=== PATIENT | male | born 1955 | race Caucasian/White ===

== ENCOUNTER 2022-11-22 07:58 | Outpatient (CLI) | payer MEDICARE, OTHER, SELFPAY ==
--- NOTE | 2022-11-22 08:10 | ECG_ITS ---
Measurements Intervals [place] Rate: 60 P: MA: 0 QRS: -6 QRSD: 121 T: -9 QT: 370 QTc: 371 Interpretive Statements ATRIAL FIBRILLATION MODERATE INTRAVENTRICULAR CONDUCTION DELAY [105+ ms QRS DURATION, 80+ ms Q/S IN V1/V2, NO Q AND 60+ ms R IN I/aVL/V5/V6] NONSPECIFIC ST AND T WAVE ABNORMALITY NO PREVIOUS ECG AVAILABLE FOR COMPARISON Electronically Signed On 11-22-2022 18:06:39 CDT by Mike Rendon M.D.
[2022-11-22 08:55] LABS: Anion Gap 5 mmol/L (8-16); Blood Urea Nitrogen 30 mg/dL (9-20); Carbon Dioxide 30 mmol/L (22-30); Chloride 105 mmol/L (98-107); Estimated Glomerular Filt Rate > 60; Glucose 113 mg/dL (65-110); Potassium 4.3 mmol/L (3.4-5.0); Sodium 140 mmol/L (137-145)
== END 2022-11-22 07:59 | disposition home or self-care (01) ==
LOC: ANHSURGERY 08:05
PROVIDERS: Anesthesiology; PCP Family Medicine; Visit Provider Neurological Surgery
DX: Z01.818 Encounter for other preprocedural examination (principal); I10 Essential (primary) hypertension; M43.06 Spondylolysis, lumbar region; M51.27 Other intervertebral disc displacement, lumbosacral region; I48.91 Unspecified atrial fibrillation; R94.31 Abnormal electrocardiogram [ECG] [EKG]
CPT/HCPCS: 36415; 80048; 86850; 86900; 86901; 93005

== ENCOUNTER 2022-11-28 00:50 | Day surgery (SDC) | payer MEDICARE, OTHER, SELFPAY ==
--- NOTE | 2022-11-20 14:18 | PC.NURSE ---
Report to the Outpatient Waiting Room, entrance under the green pavilion located off [facility], at time __1030 on date _11/28/22 . Planned Procedure Time: _1230 . Time changes happen often and if your time is changed the preop area will call you the afternoon before. - You and your visitor will be asked to self-screen and do not enter if you have any COVID symptoms. - A mask is optional within the hospital at this time. Patients may have clear liquids (water, carbonated beverages, clear teas, apple juice) until 3 hours prior to surgery with a maximum of 20 ounces. - No food from midnight until time of surgery - Infants may have breast milk until 4 hours before surgery, infant formula 6 hours prior to surgery. - Children will be allowed to drink immediately following surgery. If applicable, please bring a bottle or sippy cup to assist with drinking. Juice, water, soda, and popsicles are readily available. For infants on formula, please bring formula the day of surgery. Pacifiers are allowed. Take the following medications with a SIP of water the morning of surgery: ____LEVOTHYROXINE,CARVEDILOL, HYDROCODONE IF NEEDED FOR PAIN DO NOT STOP ANY OF YOUR OTHER PRESCRIPTION MEDICATIONS PRIOR TO SURGERY ?EXCEPT THE FOLLOWING Medications to discontinue per physician __PT STATES HOLD ELIQUIS 2 DAYS PRE OP PER DR RODRIGUEZ. LAST DOSE 11/25/22. ALL VITAMINS/SUPPLEMENTS 3 DAYS PRE OP.LAST DOSE 11/24/22 Please no make-up, nail thai, hairspray, perfume, deodorant, or body powder the day of surgery. No jewelry (including any body piercings) or valuables the day of surgery, leave them at home. Please take a shower or bath the night before, or the morning of, surgery with an antibacterial soap. Wear comfortable, loose fitting clothing. Children are encouraged to wear pajamas. - Jewelry must be removed prior to entering the operating room. Rings and piercings that are not removed may be cut off. - The hospital will not accept responsibility for valuables. - Please leave all valuables, including medications, at home the day of surgery. If you are going home after surgery, a licensed cart driver must drive you home. - NO public transportation without another adult if you receive anesthesia. - We recommend that an adult stay with you for 24 hours following discharge. - We also recommend that you do not drive, make important decision, drink alcoholic beverages, or take any drugs that were not prescribed by your health care provider for at least 24 hours after your discharge time. For Pediatric surgeries, we recommend two adults accompany the child home. Follow any additional instructions given to you from your surgeon. If you or anyone in your household have experienced Covid symptoms in the past week, please notify your surgeon or the nurse liaison at the phone number below for possible testing. Telephone instructions given to __PATIENT and asked if any additional questions and then verbalized understanding. Patient advised to call surgeon office or pre surgery nurse liaison [phone] if any additional questions.
[2022-11-20 14:41] VITALS: BMI 30.6
[2022-11-28] VITALS (8 sets, daily range): BP systolic 108–134; BP diastolic 66–95; PULSE 58–88; RESP 12–18; TEMP 36.1–36.3; O2SAT 97–100
--- NOTE | ~2022-11-28 | XR_ITS ---
EXAMINATION: XR fluoroscopy no charge DATE: 11/28/2022 16:08 INDICATION: L5-S1 far lateral lumbar microdiscectomy TECHNIQUE: 2 fluoroscopic images of the lumbosacral junction were obtained during procedure performed by Dr. Rivera. Radiologist was not present for the imaging or procedure. The amount of fluoroscopy time used during this procedure was 0.1 minutes. COMPARISON: None. FINDINGS: Wire markers from lap sponge projects over the soft tissues posterior to the lumbosacral junction. Th e tip of a metallic probe projects over the region of the L5-S1 facet joint. There is mild disc heigh t loss at L4-L5 and mild grade 1 anterolisthesis of L5 on S1. IMPRESSION: 1. Fluoroscopy utilized during neurosurgical procedure at the lumbosacral junction. See procedure not e for further detail. Reviewed, dictated and finalized at location A. IMPRESSION: 1. Fluoroscopy utilized during neurosurgical procedure at the lumbosacral junct ion. See procedure note for further detail.
[2022-11-28] MEDS: LACTATED RINGERS 1,000 ML 30 ML IV CONT ×2 (10:50→15:58)
--- NOTE | 2022-11-28 12:16 | WPDANESEPPF ---
Anes - Initial Pre Proc Eval Procedure: Operation Date: 11/28/22 12:30 Proposed Procedures p Right L5-S1 Far Lateral Microdiscectomy - Darrell Rivera MD Date/Time: 11/28/22 12:16 Surgeon: Darrell Rivera MD Pre Op Diagnosis: right L5-s1 far lateral herniated nucleus pulposus Patient Data Age: 67 Gender: M Height: 1.91 m Weight: 109.7 kg Last Vital Signs Temp 36.1 C L 11/28/22 11:02 Pulse 67 11/28/22 11:02 Resp 16 11/28/22 11:02 BP 130/95 H 11/28/22 11:02 Pulse Ox 100 11/28/22 11:02 O2 Del Method Room Air 11/28/22 11:02 Allergies Allergy/AdvReac Type Severity Reaction Status Date / Time No Known Allergies Allergy Verified 11/28/22 10:29 Home Medications Medication Instructions Recorded Confirmed Type apixaban 5 mg tablet (Eliquis) 5 mg PO BID 11/20/22 11/20/22 History carvedilol 12.5 mg tablet 12.5 mg PO BID 11/20/22 11/20/22 History chlorthalidone 25 mg tablet 25 mg PO DAILY 11/20/22 11/20/22 History coQ10 (ubiquinol) 100 mg capsule 100 mg PO DAILY 11/20/22 11/20/22 History gabapentin 300 mg capsule 600 mg PO HS 11/20/22 11/20/22 History hydrocodone 5 mg-acetaminophen 325 1 tablet PO Q6-8H PRN Pain 11/20/22 11/20/22 History mg tablet levothyroxine 88 mcg tablet 88 mcg PO DAILY 11/20/22 11/20/22 History lisinopril 20 mg tablet 25 mg PO BID 11/20/22 11/20/22 History multivitamin (Daily Multi-Vitamin 1 tablet PO DAILY 11/20/22 11/20/22 History tablet) pravastatin 40 mg tablet 40 mg PO HS 11/20/22 11/20/22 History prazosin 1 mg capsule 1 mg PO HS PTSD 11/20/22 11/20/22 History Patient hx anesthesia problems: none Family hx anesthesia problems: none Results Review: All pre-operative results and documents have been reviewed as part of the pre-operative evaluation. [facility] Past Medical History Medical History Afib Asthma CAD (coronary artery disease) Hypercholesterolemia Hypertension Inguinal hernia Lumbar stenosis Sleep apnea Surgical History Surgical History (Updated 11/28/22 @ 12:16 by Kevan Marques MD) S/P hernia surgery Stented coronary artery Family History Family History Other Asthma Diabetes mellitus Heart disease Hypertension Social History Social History Smoking status: Never smoker Alcohol intake: never Substance use: never Substance use type: does not use Lack of Transportation: No Lack of Food: Never True Current Housing: I Have Housing Concerned About Future Housing: No Difficulty Paying Gas/Electric Bills: No Difficulty Paying for Meds: No Currently Unemployed: No Education: Decline to Answer Difficulty w/ Childcare or Family Care: No Living arrangements: with family Occupation/Education: occupation Gender identity (if verbalized by the patient): Male Spiritual care concerns: No Anes - Eval Final PreProcedure Day of Procedure 11/28/22 12:16 Patient weight: obese Heart: regular rate and rhythm Lungs: clear to auscultation Airway: Mallampati scale class II and special considerations poor dentition Neurological: alert and oriented Last oral intake: >/= 8 hours ASA classification: III Emergent: no Anesthetic plan: proceed Anesthesia type and monitoring: general ETT and standard monitoring Results Review: All pre-operative results and documents have been reviewed as part of the pre-operative evaluation. Informed Consent: The patient's anesthetic plan and its attendant risks including MT and arrhythmia and benefits were discussed with the patient/family/POA. Questions were solicited and answers provided to the satisfaction of the patient/family/POA.
--- NOTE | 2022-11-28 13:33 | SUR.PREOP ---
Discussed continued delay. Voices understanding. Doesn't seem much bothered by it.
--- NOTE | 2022-11-28 13:56 | PM.IMHP ---
H&P: HPI History of Present Illness Date/Time: 11/28/22 13:56 Chief Complaint: Back and right leg pain Narrative: Donis is a 67-year-old gentleman with back and right lower extremity pain related to a disc herniation in the foramen on the right at L5-S1. He has not changed appreciably since we last saw him. He does not have specific muscle group weakness and occasional dermatomal numbness. He is not having bowel or bladder difficulty. Review of Systems Review of Systems: Patient denies shortness of breath, cough, fever, chills, nausea, vomiting, weight loss, weight gain, chest pain, dysuria. He has back and leg pain as above. His review of systems is otherwise negative on 12 systems except as noted elsewhere. [facility] Past Medical History Medical History Afib Asthma CAD (coronary artery disease) Hypercholesterolemia Hypertension Inguinal hernia Lumbar stenosis Sleep apnea Surgical History Surgical History (Updated 11/28/22 @ 12:16 by Kevan Marques MD) S/P hernia surgery Stented coronary artery Family History Family History Other Asthma Diabetes mellitus Heart disease Hypertension Social History Social History Smoking status: Never smoker Alcohol intake: never Substance use: never Substance use type: does not use Lack of Transportation: No Lack of Food: Never True Current Housing: I Have Housing Concerned About Future Housing: No Difficulty Paying Gas/Electric Bills: No Difficulty Paying for Meds: No Currently Unemployed: No Education: Decline to Answer Difficulty w/ Childcare or Family Care: No Living arrangements: with family Occupation/Education: occupation Gender identity (if verbalized by the patient): Male Spiritual care concerns: No Meds Home Medications and Allergies Home Medications Medication Instructions Recorded Confirmed Type apixaban 5 mg tablet (Eliquis) 5 mg PO BID 11/20/22 11/20/22 History carvedilol 12.5 mg tablet 12.5 mg PO BID 11/20/22 11/20/22 History chlorthalidone 25 mg tablet 25 mg PO DAILY 11/20/22 11/20/22 History coQ10 (ubiquinol) 100 mg capsule 100 mg PO DAILY 11/20/22 11/20/22 History gabapentin 300 mg capsule 600 mg PO HS 11/20/22 11/20/22 History hydrocodone 5 mg-acetaminophen 325 1 tablet PO Q6-8H PRN Pain 11/20/22 11/20/22 History mg tablet levothyroxine 88 mcg tablet 88 mcg PO DAILY 11/20/22 11/20/22 History lisinopril 20 mg tablet 25 mg PO BID 11/20/22 11/20/22 History multivitamin (Daily Multi-Vitamin 1 tablet PO DAILY 11/20/22 11/20/22 History tablet) pravastatin 40 mg tablet 40 mg PO HS 11/20/22 11/20/22 History prazosin 1 mg capsule 1 mg PO HS PTSD 11/20/22 11/20/22 History Allergies Allergy/AdvReac Type Severity Reaction Status Date / Time No Known Allergies Allergy Verified 11/28/22 10:29 Vital Signs Vital Signs - 24 hr 11/28/22 11:02 Temperature 97 F L Pulse Rate 67 Respiratory Rate 16 Blood Pressure 130/95 H Pulse Oximetry 100 Oxygen Delivery Room Air Exam Narrative: Strength is 5/5 in all muscle groups of the bilateral lower extremities. Sensation is intact to light touch throughout the lower extremities. Respirations are nonlabored. He speaks in complete sentences without difficulty. Regular rate and rhythm Assessment and Plan Assessment and plan (1) Lumbosacral disc herniation: Code(s): M51.27 - Other intervertebral disc displacement, lumbosacral region Status: Acute Plan Donis is a 67-year-old gentleman with neural foraminal stenosis on the right at L5-S1 presents for decompression by way of far lateral foraminotomy and microdiskectomy. I described to him again that operation, its risks, potential benefits, the operative and postoperative course in detail and answered all his questions
--- NOTE | 2022-11-28 13:58 | WPDHPUPDATE1 ---
History and Physical Update Update Date/Time: 11/28/22 13:58 History and Physical has been reviewed, including an updated exam of the patient. There are NO changes in the patient's condition. Risks, benefits, and alternatives have been discussed and questions answered. Patient agrees to proceed with procedure.
[2022-11-28] MEDS: ceFAZolin 2 GM/D5W 50 ML 2 GM/50 ML BAG IVPB (14:30)
[2022-11-28] MEDS: LIDO 1%/EPINEPHRINE 1:100,000 50 ML VIAL 10 ML INFILTRATE (15:12)
[2022-11-28] MEDS: fentaNYL CITRATE INJ (*CRX) 100 MCG/2 ML VIAL 25 MCG IV PUSH ×4 (16:19→16:40)
[2022-11-28] MEDS: oxyCODONE HCL (*CRX) 5 MG TAB IR PO (17:09)
--- NOTE | 2022-12-07 08:13 | P.OP_ITS ---
Procedure Note - Detailed Date of Procedure 12/07/22 Pre-op Diagnosis right L5-s1 far lateral herniated nucleus pulposus Post-op Diagnosis Same Procedure Performed Right L4-5 far lateral foraminotomy and microdiskectomy Surgeon Darrell Rivera MD Anesthesia General Description of Procedure The patient was brought to the operating room in the supine position, was sedated, intubated and placed under general anesthesia in routine fashion. He was then turned into the prone position on a Rusty frame. The area of operation on his back was examined marked for incision, prepped and draped in routine sterile fashion. Incision was marked over the L5 and S1 spinous processes in the midline. This area was injected with 0.5% lidocaine with [id number]- [id number] epinephrine. Intravenous antibiotics given prior to incision. Incision was made with a 10 blade scalpel down to the lumbodorsal fascia. A subperiosteal dissection of the muscle soft tissue away from spinous process and lamina at L5 and S1 on the right was performed with a subperiosteal elevator and Bovie cautery. A verifying x-rays obtained to verify the level of operation. On the right at L5-S1 Midas-Dandre drill was used to resect the lateral pars and facet to the soft contents of the foramen were encountered. Under microscopy the yellow ligament was lifted and removed piecemeal using Kerrison punches. The disc was identified below in the nerve root was retracted superiorly. The ligament was entered using 11 blade scalpel. An Jim curette, curved curette and Cruz rongeur were used to push free and remove consists of herniated disc from the foramen. This was done until nerve hook could be placed proximally and distally to confirm lack of compression. The wound was then copiously irrigated with bacitracin irrigation all bleeding was stopped with bipolar and Bovie cautery and Gelfoam thrombin powder. The wound was then closed in layered fashion with 2-0 Vicryl interrupted sutures in the lumbodorsal fascia and Dylan's layer. 3-0 Vicryl buried interrupted sutures were placed in the dermis and the skin was closed with a running 4-0 Monocryl subcuticular stitch and dressed with Dermabond. The patient was allowed to wake up in the operating room was taken to the recovery room in stable condition. There were no immediate complications of this operation. All counts were reported correct in the case. Blood loss was 25 cc. Patient was neurologically at his baseline postoperatively. Estimated Blood Loss 25 IV Fluids 1,000 Complications None Condition Stable Disposition PACU [facility] Billing Surgery - Charge Forward: Surgery Billing
== END 2022-11-28 17:47 | disposition home or self-care (01) ==
PROVIDERS: PCP Family Medicine; Visit Provider Neurological Surgery
PROC: (CPT 63030; principal; 2022-11-28 12:30)
DX: M51.26 Other intervertebral disc displacement, lumbar region (principal); I48.91 Unspecified atrial fibrillation; I25.10 Atherosclerotic heart disease of native coronary artery without angina pectoris; I10 Essential (primary) hypertension; E78.00 Pure hypercholesterolemia, unspecified; J45.909 Unspecified asthma, uncomplicated; G47.30 Sleep apnea, unspecified; Z95.5 Presence of coronary angioplasty implant and graft; Z79.891 Long term (current) use of opiate analgesic; Z79.01 Long term (current) use of anticoagulants; E66.9 Obesity, unspecified; Z68.30 Body mass index [BMI] 30.0-30.9, adult
CPT/HCPCS: 63056; 99199; A9270; J0690; J1100; J1170; J2250; J2405; J2704; J2710; J3010; J7120

== ENCOUNTER 2023-01-15 14:37 | Outpatient (CLI) | payer MEDICARE, OTHER, SELFPAY ==
--- NOTE | ~2023-01-15 | XR_ITS ---
EXAMINATION: XR lumbar spine 2-3V DATE: 01/15/2023 15:02 INDICATION: Recent microdiscectomy TECHNIQUE: Anteroposterior and lateral views of the lumbar spine, and cone-down lateral view of the l umbosacral junction were obtained. COMPARISON: None. FINDINGS: There are 5 mm of anterolisthesis of L5 on S1. There is mild loss of intervertebral disc sp saad height at L4-5 and T12-L1. The vertebral body heights are maintained. There is moderate facet jorge nt osteoarthritis of the lower lumbar spine. No fracture is identified. Phleboliths are noted in the pelvis. IMPRESSION: 1. Mild lumbar spondylosis without acute findings. Reviewed, dictated and finalized at location F.
== END 2023-01-15 14:38 | disposition home or self-care (01) ==
PROVIDERS: PCP Family Medicine; Visit Provider Neurological Surgery
DX: M47.896 Other spondylosis, lumbar region (principal); Z98.890 Other specified postprocedural states
CPT/HCPCS: 72100